=== PATIENT | female | born 1985 | race Caucasian/White ===

== ENCOUNTER → 2017-07-28 | Outpatient (REF) | payer OTHER | LOC: M LAB REF 10:17 | DX: J00 Acute nasopharyngitis [common cold] (principal) ==

== ENCOUNTER → 2019-03-02 | Outpatient (REF) | payer OTHER ==
[2019-03-02 13:26] LABS: BASO % 0.3 % (0.0-1.0); EOS # 0.5 10^3/uL (0.0-0.5); EOS % 6.1 % (0.0-3.0); HEMATOCRIT 43.4 % (36.0-47.0); HEMOGLOBIN 14.2 g/dl (12.0-15.5); LYMPH # 1.9 10^3/uL (1.5-5.0); LYMPH % 21.3 % (24.0-44.0); MEAN CORPUSCULAR HGB CONC 32.7 g/dl (32.0-36.5); MEAN CORPUSCULAR VOLUME 94.8 fl (80.0-96.0); MONO # 0.5 10^3/uL (0.0-0.8); MONO % 6.1 % (0.0-5.0); NEUTROPHILS # 5.8 10^3/uL (1.5-8.5); NEUTROPHILS % 65.7 % (36.0-66.0); PLATELET COUNT, AUTOMATED 263 10^3/uL (150-450); RED BLOOD COUNT 4.58 10^6/uL (4.00-5.40); WHITE BLOOD COUNT 8.7 10^3/uL (4.0-10.0)
[2019-03-02 13:41] LABS: ALBUMIN 4.3 GM/DL (3.2-5.2); ALT/SGPT 32 U/L (12-78); BILIRUBIN,TOTAL 0.4 MG/DL (0.2-1.0); BLOOD UREA NITROGEN 16 MG/DL (7-18); CARBON DIOXIDE LEVEL 27 MEQ/L (21-32); CHLORIDE LEVEL 105 MEQ/L (98-107); CHOLESTEROL LEVEL 186 MG/DL (<200); CREATININE FOR GFR 0.75 MG/DL (0.55-1.30); FREE T4 0.79 NG/DL (0.76-1.46); GLOMERULAR FILTRATION RATE > 60.0 (>60); GLUCOSE, FASTING 82 MG/DL (70-100); HDL CHOLESTEROL 50 MG/DL (>40); LDL CHOLESTEROL 117 MG/DL (<100); NON-HDL-C 136 MG/DL; POTASSIUM SERUM 4.4 MEQ/L (3.5-5.1); SODIUM LEVEL 139 MEQ/L (136-145); TOTAL 25(OH) VITAMIN D 26.6 NG/ML (30.0-100.0); TRIGLYCERIDES LEVEL 94 MG/DL (<150)
== END ==
LOC: M SFHCSACK 09:39
PROVIDERS: ATTEND Physician Assistant
DX: J30.2 Other seasonal allergic rhinitis (principal); Z13.220 Encounter for screening for lipoid disorders; Z13.29 Encounter for screening for other suspected endocrine disorder; Z13.21 Encounter for screening for nutritional disorder

== ENCOUNTER 2024-06-20 13:21 | Day surgery (SDC) | payer BC ==
[~2024-06-20] VITALS: Ht 157.5 cm; Wt 80.1 kg
[~2024-06-20 13:21] MED LIST: ACETAMINOPHEN *IV* 1,000 MG in IV 1 EA IV ONE; LR 1,000 ML IV SCH
[2024-06-20 14:45] LABS: HEMATOCRIT 38.6 % (36.0-47.0); HEMOGLOBIN 13.1 g/dl (12.0-15.5); MEAN CORPUSCULAR HEMOGLOBIN 30.8 pg (27.0-33.0); MEAN CORPUSCULAR HGB CONC 33.9 g/dl (32.0-36.5); MEAN CORPUSCULAR VOLUME 90.8 fl (80.0-96.0); PLATELET COUNT, AUTOMATED 254 10^3/uL (150-450); RED BLOOD COUNT 4.25 10^6/uL (4.00-5.40); WHITE BLOOD COUNT 9.2 10^3/uL (4.0-10.0)
[2024-06-20] MEDS ORDERED: propofoL 200 MG/20 ML VIAL As Ordered ONE (16:23)
[2024-06-20] MEDS ORDERED: ONDANSETRON 4MG 2ML VIAL As Ordered ONE (16:23)
[2024-06-20] MEDS ORDERED: MIDAZOLAM INJ 2MG/2ML VIAL As Ordered ONE (16:23)
[2024-06-20] MEDS ORDERED: SUGAMMADEX SODIUM 500 MG/5 ML VIAL (BRIDION) As Ordered ONE (16:23)
[2024-06-20] MEDS ORDERED: ACETAMINOPHEN 1000MG/100ML IV BAG As Ordered ONE (16:23)
[2024-06-20] MEDS ORDERED: dexmedeTOMIDine (4MCG/ML)200MCG/50ML BTL (PRECEDEX) As Ordered ONE (16:23)
[2024-06-20] MEDS ORDERED: LIDOCAINE 2% 100MG/5ML SDV (FOR ANES.) As Ordered ONE (16:23)
[2024-06-20] MEDS ORDERED: ROCURONIUM BROMIDE 50MG/5ML VIAL As Ordered ONE (16:23)
[2024-06-20] MEDS ORDERED: fentaNYL 100 MCG/2 ML INJECTION As Ordered ONE (16:23)
[2024-06-20] MEDS ORDERED: HYDROmorphone HCL 2MG/ML 1ML VIAL As Ordered ONE (16:37)
[2024-06-20] MEDS ORDERED: KETOROLAC 60MG 2ML VIAL As Ordered ONE (16:38)
[2024-06-20] MEDS: METHYLENE BLUE 0.5% (5MG/ML) 10 ML AMP (PROVAYBLUE) As Ordered ONE (16:52)
[2024-06-20] MEDS: LIDOCAINE 1% SDV 30ML VIAL As Ordered ONE (16:52)
[2024-06-20] MEDS ORDERED: ONDANSETRON 4MG 2ML VIAL IV PRN (17:00)
[2024-06-20] MEDS ORDERED: MORPHINE 2 MG/ML 1ML VIAL IV PRN (17:00)
[2024-06-20] MEDS ORDERED: fentaNYL 100 MCG/2 ML INJECTION IV PRN (17:00)
[2024-06-20] MEDS: oxyCODONE 5MG TAB PO PRN (17:19)
[2024-06-20] MEDS ORDERED: PERCOCET 5MG/325MG TAB PO PRN (18:05)
[2024-06-20 18:25] VITALS: BP 141/79; TEMP 98.3; O2SAT 100
[2024-06-20] MEDS ORDERED: IBUPROFEN 800 MG TAB PO SCH (22:30)
== END 2024-06-20 18:44 | disposition home or self-care (01) ==
LOC: M SDC 13:21
PROVIDERS: ATTEND Obstetrics & Gynecology
DX: Z30.2 Encounter for sterilization (principal); Z30.432 Encounter for removal of intrauterine contraceptive device; J45.909 Unspecified asthma, uncomplicated
CPT/HCPCS: 36415; 58301; 58661; 81025; 85027; 86850; 86900; 86901; 88302; J0131; J0665; J1100; J1171; J1885; J2250; J2405; J3010